=== PATIENT | female | born 1985 | race Caucasian/White ===

== ENCOUNTER 2019-01-13 08:54 | Day surgery (SDC) | payer OTHER ==
--- NOTE | 2019-01-13 09:14 | EDPHY ---
General - History Smoking Status: Never smoked Time Seen by Provider: 01/13/19 09:05 Narrative: CLINICAL IMPRESSION: Esophageal foreign body sensation, dysphagia ASSESSMENT/PLAN: Patient is a 33-year-old female with no significant medical history presents to the emergency department with esophageal foreign body sensation and dysphagia. Patient is afebrile, she is uncomfortable appearing however not toxic- appearing. She is able to pass secretions however unable to pass any liquids or solids. Patient was given antiemetic, glucagon, IV fluids and Pepcid in the emergency department. She had minimal to no improvement of her symptoms. GI was consulted, I spoke to Dr. Patton. Plan will be for formal upper endoscopy for further evaluation of dysphagia and esophageal foreign body sensation. There were no findings to suggest aspiration or perforation. Patient remained stable however continued to be mildly uncomfortable, she was still able to pass saliva prior to transfer to the endoscopy suite. DIFFERENTIAL DX: Differential diagnosis including but not limited to and in no particular order esophageal foreign body, mass, esophageal stricture, hiatal hernia, esophageal perforation ED COURSE: 09: Discussed with Dr. Cabezas 09: Case discussed with Dr. Patton, plan will be for endoscopy. CHIEF COMPLAINT: "Foreign body stuck in throat" HPI: Patient is a 33-year-old female with no significant medical history who presents to the emergency department with foreign body sensation stuck and throat since 6:30 p.m. yesterday after eating steak. Patient reports she had a piece of steak, she suddenly felt like it got stuck in her esophagus, denies any difficulty breathing or aspiration. She has been having difficulty passing any sort of liquids or solids, she is still able to pass her oral secretions however not easily. She has had some associated nausea and vomiting of small volume clear liquids, feels some epigastric discomfort secondary to vomiting. She denies any fevers, chest pain or shortness of breath. She does report similar episodes in the past however never this severe, no formal evaluation by GI. Denies any other abdominal pain, urinary symptoms or change in bowel habits. PMH: Denies Family History: Not contributory Social History: Former smoker, denies illicit drug use REVIEW OF SYSTEMS: All other systems negative Constitutional: Decreased appetite. No fever, no chills. Eyes: No discharge, vision change ENT: Foreign body sensation in throat. No sore throat, congestion, ear pain. Cardiovascular: No chest pain, no palpitations. Respiratory: No cough, no shortness of breath. Gastrointestinal: Mild epigastric discomfort. No abdominal pain, no vomiting, diarrhea. Genitourinary: No hematuria, dysuria, flank pain. Musculoskeletal: No back pain, joint swelling, joint pain, myalgias. Skin: No rashes, color change. Neurological: No headache, dizziness, weakness. PHYSICAL EXAM: General Appearance: Tired and uncomfortable appearing, spitting up clear mucus in cup. HEENT: Normocephalic, atraumatic. Bilateral external ears are normal. Nares are clear, mucosa is pink. Oropharynx is clear, uvula is midline. There is no tonsillar enlargement or exudate. The dentition is normal. Phonation is normal, there is no trismus or stridor. Patient is able to pass oral secretions. Unable to drink water. Eyes: PERRLA, EOMI. Conjunctiva pink, no pallor or injection. Neck: Supple, nontender, no lymphadenopathy, no midline pain, FROM. Respiratory: There are no retractions, lungs are clear to auscultation. Cardiac: Regular rate and rhythm, no murmurs or gallops. Gastrointestinal: Abdomen is soft, bowel sounds normal, no masses/hernia, no rigidity, guarding or focal peritoneal findings. I am unable to elicit any tenderness to palpation. Neurological: Alert and oriented x 3, CN 2-12 grossly intact, normal sensation and strength Skin: Warm, dry, no rashes, no nodules on palpation. Musculoskeletal: Extremities are symmetrical, full range of motion, no tenderness, deformity, swelling, or erythema. Psychiatric: Mood and affect are normal, there is no agitation. MEDICAL DECISION MAKING: Patient was seen independently. Secondary supervising physician at time of evaluation was Dr. Cabezas, she did not evaluate this patient. Diagnosis: Dysphagia. Summary: See Assessment and Plan for summary of ED visit Decision to obtain medical records or history from someone other than the patient: No Review / Summarize previous medical records: Yes Discussed patient with another provider: Yes, Dr. Cabezas and Dr. Patton Patient Progress: Stable, transfer to endoscopy suite. (Tracey Cannon) The patient was evaluated and managed by the physician library serials assistant. I have reviewed this chart and I agree with the findings and plan of care as documented , as indicated by my signature. I am the secondary supervising physician. ( Yoly Cabezas) - Objective Vital Signs: Initial Vital Signs Temperature (C) 37 C 01/13/19 09:00 Heart Rate 96 01/13/19 09:00 Respiratory Rate 18 01/13/19 09:00 Blood Pressure 136/90 H 01/13/19 09:00 O2 Sat (%) 96 01/13/19 09:00 O2 Delivery Mode Room Air O2 (L/minute) 10 Allergies/Adverse Reactions: Sulfa (Sulfonamide Antibiotics) Allergy (Verified 01/13/19 08:59) Home Medications: Medication Instructions Recorded Bcp 01/13/19 Fish Oil 1000 mg (*) 01/13/19 Multivitamin 01/13/19 Medications Given: Discontinued Medications Famotidine (Pepcid) 20 mg IVP EDNOW ONE Stop: 01/13/19 09:16 Last Admin: 01/13/19 09:24 Dose: 20 mg Glucagon (Glucagon) 1 mg IVP EDNOW ONE Stop: 01/13/19 09:26 Last Admin: 01/13/19 09:34 Dose: 1 mg Sodium Chloride (Ns) 1,000 mls @ 0 mls/hr IV EDNOW ONE; Wide Open PRN Reason: Protocol Stop: 01/13/19 09:16 Last Admin: 01/13/19 09:24 Dose: 1,000 mls Lactated Ringer's (Lr) 1,000 mls @ 25 mls/hr IV ONCALL ONE Stop: 01/15/19 02:11 Last Admin: 01/13/19 10:24 Dose: 1,000 mls Midazolam HCl (Versed) 2 mg IVP ONCALL ONE Stop: 01/13/19 10:50 Last Admin: 01/13/19 11:03 Dose: 2 mg Ondansetron HCl (Zofran) 4 mg IVP EDNOW ONE Stop: 01/13/19 09:16 Last Admin: 01/13/19 09:24 Dose: 4 mg Departure - Departure Disposition: To OP Cath/Surgery Clinical Impression: Dysphagia Qualifiers: Dysphagia type: unspecified Qualified Code(s): R13.10 - Dysphagia, unspecified
[2019-01-13] MEDS ORDERED: ONDANSETRON 4 MG/2 ML VIAL IVP ONE (09:15)
[2019-01-13] MEDS ORDERED: NS 1,000 ML IV ONE (09:15)
[2019-01-13] MEDS ORDERED: FAMOTIDINE 20 MG/2 ML SDV IVP ONE (09:15)
[2019-01-13] MEDS ORDERED: GLUCAGON HCL 1 MG VIAL IVP ONE (09:25)
[2019-01-13] MEDS ORDERED: LR 1,000 ML IV ONE (10:12)
[2019-01-13] MEDS ORDERED: MIDAZOLAM 2 MG/2 ML VIAL IVP ONE (10:49)
--- NOTE | 2019-01-13 10:49 | PDANEPAE ---
ANE History of Present Illness 33 yo for egd fo fb ANE Past Medical History - Cardiovascular History Hx Hypertension: No Hx Arrhythmias: No Hx Chest Pain: No Hx Coronary Artery / Peripheral Vascular Disease: No Hx CHF / Valvular Disease: No Hx Palpitations: No - Pulmonary History Hx Oxygen in Use at Home: No Hx Sleep Apnea: No - Endocrine History Hx Diabetes: No ANE Review of Systems Review of Systems: - Exercise capacity METS (RN): 4 METS ANE Patient History - Allergies Allergies/Adverse Reactions: Sulfa (Sulfonamide Antibiotics) Allergy (Verified 01/13/19 08:59) - Home Medications Home medications: home medication list seen and reviewed Home Medications: Bcp 01/13/19 [Last Taken 01/12/19] Fish Oil 1000 mg (*) 01/13/19 [Last Taken 01/12/19] Multivitamin 01/13/19 [Last Taken 01/12/19] - NPO status NPO Since - Liquids (Date): 01/12/19 NPO Since - Liquids (Time): 18:30 NPO Since - Solids (Date): 01/12/19 NPO Since - Solids (Time): 18:30 - Anes Hx Anes Hx: no prior problems - Smoking Hx Smoking Status: Never smoked ANE Labs/Vital Signs - Vital Signs Blood Pressure: 126/82 Heart Rate: 62 Respiratory Rate: 18 O2 Sat (%): 96 Height: 5 ft 8 in Weight: 58.967 kg ANE Physical Exam - Airway Neck exam: FROM Mallampati Score: Class 2 Mouth exam: normal dental/mouth exam - Pulmonary Pulmonary: no respiratory distress - Cardiovascular Cardiovascular: regular rate and rhythym - ASA Status ASA Status: I, E ANE Anesthesia Plan Anesthesia Plan: general endotracheal anesthesia
[2019-01-13] MEDS ORDERED: ROCURONIUM 50 MG/5 ML VIAL ONE (10:54)
[2019-01-13] MEDS ORDERED: DEXAMETHASONE 4 MG/ML VIAL ONE (10:54)
[2019-01-13] MEDS ORDERED: REMIFENTANIL HCL 1 MG VIAL ONE (10:54)
[2019-01-13] MEDS ORDERED: PROPOFOL/EMULSION 500 MG/50 ML BOTTLE IV ONE (10:54)
[2019-01-13] MEDS ORDERED: SUGAMMADEX SODIUM 200 MG/2 ML VIAL IVP ONE (11:04)
[2019-01-13] MEDS ORDERED: fentaNYL 100 MCG/2 ML INJ IVP PRN (11:33)
[2019-01-13] MEDS ORDERED: NALOXONE HCL 0.4 MG/ML INJ IVP PRN (11:33)
[2019-01-13] MEDS ORDERED: ONDANSETRON 4 MG/2 ML VIAL IVP PRN (11:33)
--- NOTE | 2019-01-13 11:34 | GIREPORT ---
[facility] - Endoscopy Department Patient Name: Airam Dutton Procedure Date: 01/13/2019 10:46 AM Patient Type: Emergency Department Attending MD/ ER Physician: Trey Patton MD Procedure: Upper GI endoscopy Indications: Dysphagia, Foreign body in the esophagus Providers: Trey Patton MD Referring MD: Sandra Lunsford Medicines: General Anesthesia Complications: No immediate complications. Estimated blood loss: Minimal. Description of Procedure: After obtaining informed consent, the endoscope was passed under direct vision. Throughout the procedure, the patient's blood pressure, pulse, and oxygen saturations were monitored continuously. The Endoscope was intro duced through the mouth, and advanced to the third part of duodenum. The uppe r GI endoscopy was accomplished without difficulty. The patient tolerated th e procedure well. Findings: The upper third of the esophagus and lower third of the esophagus were normal. Biopsies were obtained from the proximal and distal esophagus w ith cold forceps for histology of suspected eosinophilic esophagitis. Food was found in the lower third of the esophagus. Removal was accompl ished with a snare. Estimated blood loss: none. One benign-appearing, intrinsic moderate stenosis was found at the gastroesophageal junction. The stenosis was traversed. A TTS dilator wa s passed through the scope. Dilation with a 15-16.5-18 mm x 5.5 cm CRE ba lloon dilator was performed to 18 mm. Estimated blood loss was minimal. The entire examined stomach was normal. FB pushed into stomach after sn are removal of portion of FB. The examined duodenum was normal. The exam was otherwise without abnormality. Estimated Blood Loss: Estimated blood loss was minimal. Post Op Diagnosis: - Normal upper third of esophagus and lower third of esophagus. Biopsie d. Doubt EoE - Food was found in the esophagus. Removal was successful. - Benign-appearing esophageal stenosis. Dilated. - Normal stomach. - Normal examined duodenum. - The examination was otherwise normal. Recommendation: - Await pathology results. - My office will call with the pathology result with 5-7 days. If you h ave not heard from my office by 12-14, do not assume the pathology is luisito l, please call [phone] to get the pathology results. - Use Protonix (pantoprazole) 40 mg PO daily for 2 months. Take 30-60 minutes before breakfast. - Follow an antireflux regimen. - Cut food into small pieces and chew well. - Repeat upper endoscopy in 6 weeks for retreatment. - Discharge patient to home (ambulatory). - Return to primary care physician as previously scheduled. - Thank you for allowing me to help in your patient's care. Do not hesi medrano to call with any questions. Attending Participation: I personally performed the entire procedure. Abdi Cohn M.D Trey Patton MD 01/13/2019 11:33:41 AM This report has been signed electronicallyMatthew MD Abdi Number of Addenda: 0 Note Initiated On: 01/13/2019 10:46 AM [email or web address]
--- NOTE | 2019-01-13 12:18 | GCON ---
[f rep st] CONSULTATION DATE OF CONSULTATION: 01/13/2019 REFERRING PHYSICIAN: Yoly Cabezas MD INDICATION FOR CONSULTATION: Foreign body. HISTORY OF PRESENT ILLNESS: I have been asked by Dr. Cabezas to see the patient in consultation for c nhef complaint of foreign body. She is a pleasant 33-year-old female who has had intermittent dyspha russell for approximately a year. She does have heartburn, but denies any nausea and vomiting. She has had intermittent foreign body stuck which she is able to remove sometimes by vomiting. She also has hiccups when these occur. She does not complain of any early satiety, diarrhea, and in between these episodes, she has no nausea or vomiting. She ate steak last night and felt it got stuck. It has be en stuck overnight. She presented to the emergency room. Able to tolerate some of her saliva but no t able to take much p.o. at all. She was noted in the ER with a foreign body. I am called to help e valuate and treat in that regard. PAST MEDICAL HISTORY: Intermittent dysphagia as noted above. PAST SURGICAL HISTORY: Gerlaw teeth removed. HOME MEDICATIONS: 1. Multivitamins. 2. control. ALLERGIES: Sulfa. SOCIAL HISTORY: She drinks alcohol very rarely. She does not smoke tobacco. FAMILY HISTORY: No GI issues to her knowledge. No colon cancer. No colon polyps. REVIEW OF SYSTEMS: A complete review of systems was performed and is negative other than as noted in the HPI. PHYSICAL EXAM: GENERAL: Well-developed, well-nourished young female in no acute distress, sitting i n her bed with a bucket to collect her saliva. VITAL SIGNS: Blood pressure 126/82, pulse 62, respir ations 18, 96% on room air, temperature 37.2. EYES: Anicteric. STALIN, EOMI. Mouth: No lesions. M oist membranes. NECK: Supple. Full range of motion. No JVD. BACK: No spine tenderness. No CVA tenderness. LUNGS: Clear to auscultation. CARDIAC: S1, S2. Regular rate and rhythm. No murmurs, rubs, or gallops appreciated. ABDOMEN: Bowel sounds are normal in pitch and frequency. Abdomen is soft with mild epigastric and subxiphoid tenderness. No rebound. No guarding. No hepatosplenomega ly. EXTREMITIES: No cyanosis, clubbing, or edema. NEUROLOGIC: Cranial nerves intact, nonfocal. S KIN: No stigmata of advanced liver disease, no rashes. LABORATORY DATA: None from this visit. ASSESSMENT: 1. History of intermittent dysphagia with some reflux symptoms, query reflux versus eosinophilic eso phagitis. 2. Foreign body with inability to take by mouth. RECOMMENDATIONS: 1. Urgent EGD with foreign body removal. 2. We will intubate the patient with general anesthesia for the safe completion of this exam. 3. We will take biopsies to make sure there is no evidence of eosinophilic esophagitis. 4. The patient will be on a PPI at least for 8 weeks. 5. Further recommendation to follow results of EGD and clinical course. Thank you for allowing me to participate in your patient's healthcare. Do not hesitate to call me if you have any questions. Copy requested to: Sandra Lunsford [place] /[id number]/MODL
[2019-01-13 12:20] VITALS: BP 112/76
--- NOTE | 2019-01-13 12:25 | POSTANESTH ---
Post Anesthetic Evaluation Cardiovascular Status: Normal, Stable Respiratory Status: Normal, Stable, Tx Decrease in SpO2 Level of Consciousness/Mental Status: Can Participate in Eval Pain Control: Adequate, Prn Tx Ordered Nausea/Vomiting Control: Adequate, Prn Tx Ordered Complications Possibly Related to Anesthesia: None Noted
== END 2019-01-13 12:30 | disposition home or self-care (01) ==
LOC: FSGY 10:01
PROVIDERS: ATTEND Internal Medicine Gastroenterology
DX: T18.128A Food in esophagus causing other injury, initial encounter (principal); K20.0 Eosinophilic esophagitis; E86.9 Volume depletion, unspecified
CPT/HCPCS: 43247; 43249; 96361; 96374; 96375; 99285; C1726; J1100; J1610; J2250; J2405; J2704